=== PATIENT | male | born 1975 | race Caucasian/White ===

== ENCOUNTER 2016-05-05 20:21 | Inpatient (IN) | payer OTHER ==
--- NOTE | ~2016-05-05 | HP ---
Unit #: [id number] #: [id number] Patient: KIMBERLY BEST [id number] [place] [address] [id number] MR#: [id number] NAME: KIMBERLY BEST ROOM: P174 Age: 40 Sex: M Admission Date: 05/05/2016 : 1975 Attending Physician: Francisco Enrique M.D. Admitting Physician: Francisco Enrique M.D. Primary Care Physician: Edwin Barrios M.D. HISTORY AND PHYSICAL HISTORY OF PRESENT ILLNESS Kimberly is a 40 year old admitted to [facility] because of his continued abuse of alcohol. He has had numerous admissions to this facility for the same. PAST MEDICAL HISTORY 1. Long history of polysubstance abuse to include alcohol. 2. Obesity. 3. History of DVT. 4. Coronary artery disease. a. History of [place], 2011. b. Angioplasty with stents. 5. History of diverticulitis. 6. Hyperlipidemia. PAST SURGICAL HISTORY 1. Colon resection at 26 years old. 2. Incisional hernia repair x2. 3. Cholecystectomy. 4. Angioplasty with stents. ALLERGIES Penicillin SOCIAL HISTORY Smokes at least one pack per day. Drinks alcohol and has a history of illicit drug use. FAMILY HISTORY Medically noncontributory. REVIEW OF SYSTEMS CONSTITUTIONAL: No fever or chills. HEENT: Denies any sore throat, ear pain or runny nose. CARDIOVASCULAR: Denies chest pain, irregular heart rhythm or palpitations. CHEST: Denies shortness of breath or cough. No hemoptysis. GASTROINTESTINAL: Denies nausea, vomiting, diarrhea or chronic constipation. ENDOCRINE: Denies history of increased thirst or urination. No recent significant weight loss or gain. GENITOURINARY: Denies dysuria, frequency, or hematuria. SKIN: Denies any rashes. Unit #: [id number] #: [id number] Patient: KIMBERLY BEST HEMATOLOGIC: Denies history of increased bleeding or bruising. MUSCULOSKELETAL: Denies any hot, swollen joints. No generalized muscle pain. NEUROLOGIC: Denies problems with vision or speech. No frequent, severe headaches. No numbness, tingling or weakness in any extremities. Denies loss of bladder or bowel control. CURRENT MEDICATIONS 1. Detox protocol 2. Effexor XR 75 mg daily 3. Zyprexa 10 mg q.h.s. 4. Nicotine patch 14 mg daily 5. Coreg 12.5 mg b.i.d. 6. BuSpar 10 mg t.i.d. 7. Xarelto 20 mg q.a.m. PHYSICAL EXAMINATION GENERAL: Alert, obese, in no apparent distress. VITAL SIGNS: Blood pressure 117/78, heart rate 76, respirations 16, temperature 98.6. WEIGHT: 240 pounds. HEIGHT: 5'11". SKIN: Warm and dry without rash or lesion. HEENT: Normocephalic. TMs not viewed. Oral and nasal passages clear. Conjunctivae clear. Pupils equal, round and reactive to light and accommodation. Extraocular movements intact. NECK: Supple without lymphadenopathy or thyromegaly. HEART: Regular rate and rhythm without murmur. LUNGS: Clear. ABDOMEN: Soft, nontender. : Not done. EXTREMITIES: No evidence of cyanosis, clubbing or edema. Moves all extremities without focal deficit. NEUROLOGICAL: Grossly within normal limits. Cranial Nerves: II: Visual brian are intact. III, IV AND : Extraocular movements are intact. Pupils are equal, round and reactive to light. V: Facial sensation is grossly normal. VII: Facial movements and expression are normal. VIII: Auditory acuity grossly intact. IX, X: Uvula is midline. Phonation is normal. XI: Patient shrugs shoulders and turns head normally. XII: Tongue protrudes in the midline. Sensory and Motor Function: Sensory and motor sensation is grossly normal. Motor: moves all extremities well. Coordination: Gait is normal. Deep Tendon Reflexes: Intact. IMPRESSION Psychiatric admission RECOMMENDATIONS PSYCHIATRIC: Per psychiatrist. MEDICAL: I see no contraindications to participating in facility's activities. MEDICAL PROGNOSIS Good. MEDICAL CONDITION Unit #: [id number] #: [id number] Patient: KIMBERLY BEST. Dictated by... Jyothi Meadows P.A.-C. for Shawna Celaya/marisabel TD: 05/06/2016 22:35 JOB #: [id number] HISTORY AND PHYSICAL Page 1 of 1 X Jyothi Meadows HISTORY AND PHYSICAL
--- NOTE | ~2016-05-05 | PN ---
Unit #: [id number] #: [id number] Patient: KIMBERLY BEST [id number] [facility] [address] [place] [address] [id number] I MR#: [id number] NAME: KIMBERLY BEST ROOM: 74 Age: 40 Sex: M Admission Date: 05/05/2016 : 1975 Attending Physician: Francisco Enrique M.D. Admitting Physician: Francisco Enrique M.D. Primary Care Physician: Shawna Darling PROGRESS NOTES DATE 05/08/2016. DISCUSSION Kimberly has mildly improved detox symptoms today. His mood appears less depressed, but still anxious with a congruent affect. He is alert and fully oriented with no psychosis. He has some ongoing suicidal ideation. ASSESSMENT Alcohol dependence, major depression. PLAN Continue detox protocol and current medications. Dictated by... Francisco Enrique M.D. [facility]/gz TD: 05/08/2016 13:58 JOB #: [id number] KIMMIE PROGRESS NOTES Page 1 of 1 X Francisco Enrique MD PROGRESS NOTE
--- NOTE | ~2016-05-05 | PA ---
Unit #: [id number] #: [id number] Patient: KIMBERLY MENDOZA [id number] [place] [address] [id number] I MR#: [id number] NAME: KIMBERLY MENDOZA ROOM: P174 Age: 40 Sex: M Admission Date: 05/05/2016 : 1975 Date of Assessment: 05/06/2016 Attending Physician: Francisco Enrique M.D. Admitting Physician: Francisco Enrique M.D. Primary Care Physician: Edwin Barrios M.D. PSYCHIATRIC ASSESSMENT DATE OF SERVICE 05/06/2016. INFORMANTS The patient, reliable. junior MOISE. CHIEF COMPLAINT Suicidal ideation. HISTORY OF PRESENT ILLNESS Kimberly Mendoza is a 40-year-old man with a history of mood disorder and polysubstance dependence. He presented reporting that he has been compliant with medications, but despite this, has relapsed on alcohol and heroin and is having increasing job stress as well. He felt hopeless, helpless and suicidal and could not contract for safety. PAST PSYCHIATRIC HISTORY Multiple admissions to this facility and multiple attempts at outpatient care. He has been taking Remeron, trazodone, and Zyprexa with erratic compliance. FAMILY PSYCHIATRIC HISTORY There is a family history of chemical dependence and depression. SOCIAL HISTORY The patient is single and is currently not having a relationship. He is staying in an apartment and working at [employer]. PAST MEDICAL HISTORY Hypertension and a cocaine-induced myocardial infarction. MEDICATIONS Coreg. ALLERGIES Benadryl. SUBSTANCE ABUSE HISTORY The patient has an extensive history of chemical dependence with alcohol and heroin predominant. MENTAL STATUS EXAMINATION Kimberly presented as a mildly disheveled man who appeared his stated age. Unit #: [id number] #: [id number] Patient: KIMBERLY MENDOZA He was cooperative with the examination. His speech was spontaneous and easily understood. Musculoskeletal examination was calm. He stood 5 feet 11 inches, weighing 240 pounds. Vital signs; temperature 98.6, pulse 68, respirations 20, and blood pressure 90/60. His speech was spontaneous and easily understood. His mood was depressed with a congruent affect. He was alert and fully oriented. His memory and concentration were intact. Thought processes were logical with no active psychosis. He reported suicidal ideation with a plan to overdose and could not contract for safety. Insight and judgment, fair. Fund of knowledge and abstraction, fair. ASSETS AND LIABILITIES The patient is familiar with local treatment, is employed and has medical insurance. Liabilities include difficulty maintaining sobriety, erratic psychosocial support. ADMITTING DIAGNOSES AXIS I: Alcohol dependence with withdrawal, uncomplicated. Opioid dependence. Major depressive disorder. AXIS II: No diagnosis. AXIS III: Coronary artery disease, hypertension. AXIS IV: AXIS V: PSYCHIATRIC PLAN The patient was admitted and placed on suicide precautions. His home medications will be restarted. Remeron will be discontinued due to lack of effect and we will substitute Effexor XR 75 mg daily and increase Zyprexa 5 mg to 10 mg at bedtime for improved sleep and mood stability. He will enroll in dual-diagnosis groups and activities, and physical examination and laboratory studies will be ordered and reviewed. TREATMENT GOALS Resolution of SI, improvement in insight, improvement in coping skills, and establishment of sobriety. DISCHARGE PLANNING Follow up with [facility]. ESTIMATED LENGTH OF STAY 5 days. Dictated by... Francisco Enrique M.D. [facility]/abel TD: 05/11/2016 05:02 JOB #: [id number] Unit #: [id number] #: [id number] Patient: KIMBERLY MENDOZA PSYCHIATRIC ASSESSMENT Page 1 of 1 X Francisco Enrique MD X PSYCHIATRIC ASSESSMENT
--- NOTE | ~2016-05-05 | PN ---
Unit #: [id number] #: [id number] Patient: KIMBERLY BEST [id number] [facility] [address] [place] [address] [id number] MR#: [id number] NAME: KIMBERLY BEST ROOM: 74 Age: 40 Sex: M Admission Date: 05/05/2016 : 1975 Attending Physician: Francisco Enrique M.D. Admitting Physician: Francisco Enrique M.D. Primary Care Physician: Shawna Darling PROGRESS NOTES DATE OF SERVICE: 05/07/2016 DISCUSSION Kimberly continues to have active withdrawal symptoms today. This includes tremor, shaking, sweating, and nausea. He is alert and fully oriented. His memory and concentration are intact. His thought processes are logical with no active psychosis. He is equivocal about suicidal ideation today. ASSESSMENT Major depression, alcohol dependence. PLAN Continue current treatment plan. Dictated by... Shawna AdamH/abel TD: 05/14/2016 02:32 JOB #: [id number] [facility] PROGRESS NOTES Page 1 of 1 X Francisco Enrique MD PROGRESS NOTE
--- NOTE | ~2016-05-05 | DS ---
Unit #: [id number] #: [id number] Patient: KIMBERLY BEST [id number] [facility] [address] [place] [address] [id number] I MR#: [id number] NAME: KIMBERLY BEST ROOM: P174 Age: 40 Sex: M Admission Date: 05/05/2016 : 1975 Discharge Date: 05/10/2016 Attending Physician: Francisco Enrique M.D. Primary Care Physician: Edwin Barrios M.D. DISCHARGE SUMMARY REASON FOR ADMISSION Kimberly is a 40-year-old man with multiple admissions to this facility, who recently relapsed onto the use of alcohol with occasional use of heroin. He had increasing hopeless and helpless and was able to contract for safety. He was admitted for stabilization. DIAGNOSTIC STUDIES LABORATORY RESULTS: Please see hospital chart. HOSPITAL COURSE Kimberly was admitted and placed on suicide precautions. The alcohol detox protocol was initiated. His Remeron, which he had been on for a long time, was changed to Effexor XR 75 mg daily with intention to titrate this upwards in the outpatient setting. We also increased Zyprexa from 5 to 10 to improve sleep and mood stability. He had [id number] detox symptoms by the time of discharge and his mood had improved. He was able to contract for safety in good condition. DISCHARGE DIAGNOSES AXIS I: Alcohol dependence with withdrawal, uncomplicated; opioid dependence; major depression. AXIS II: No diagnosis. AXIS III: Hypertension, coronary artery disease, congestive heart failure. AXIS IV: AXIS V: DISCHARGE INSTRUCTIONS [facility] and primary care physician. DISCHARGE MEDICATIONS Protonix 40 mg daily for GERD, Xarelto 20 mg daily for anticoagulation, trazodone 200 mg at bedtime for sleep, Coreg 12.5 mg b.i.d. for CHF, Neurontin 800 mg t.i.d. for neuropathy, buspirone 10 mg t.i.d. for anxiety, Effexor XR 150 mg daily for depression, Zyprexa 10 mg at bedtime for mood stability. CONDITION AT DISCHARGE Improved. PROGNOSIS Good. Unit #: [id number] #: [id number] Patient: KIMBERLY BEST DIET AND ACTIVITY Per primary care physician. Dictated by... Francisco Enrique M.D. [facility]/abel TD: 05/11/2016 05:50 JOB #: [id number] DISCHARGE SUMMARY Page 1 of 1 X Francisco Enrique MD DISCHARGE SUMMARY
[2016-05-06 09:41] LABS: BASOPHIL# 0.1 X10e3 (0-0.3); BASOPHIL% 1.4 % (0-2.5); EOSINOPHIL# 0.2 X10e3 (0-0.7); EOSINOPHIL% 3.4 % (0.0-7.0); HEMATOCRIT 41.2 % (38.0-50.0); HEMOGLOBIN 14.4 gm/dL (13.0-16.0); LYMPHOCYTE# 2.3 X10e3 (1.0-3.5); MEAN CELL VOLUME 90.5 FL (83-96); MEAN CORPUSCULAR HEMOGLOBIN 31.8 PG (28-34); MEAN CORPUSCULAR HGB CONC 35.1 g/dL (30-36); MEAN PLATELET VOLUME 7.7 FL (6.5-11.5); MONOCYTE# 0.5 X10e3 (0-1.0); MONOCYTE% 10.5 % (3.0-12.0); NEUTROPHIL# 1.6 X10e3 (1.5-7.1); NEUTROPHIL% 34.7 % (40-75); PLATELET COUNT 273 X10e3 (140-420); RED BLOOD COUNT 4.55 X10e (3.90-5.60); RED CELL DISTRIBUTION WIDTH 13.3 % (11.0-15.5); WHITE BLOOD COUNT 4.5 X10e3 (4.0-10.5)
[2016-05-06 09:46] LABS: DIFF IND NO
[2016-05-06 09:56] LABS: THYROID STIMULATING HORMONE 1.46 uIU/ml (0.34-5.60)
[2016-05-06 09:58] LABS: ALBUMIN SERUM 3.9 g/dL (3.5-5.0); ALKALINE PHOSPHATASE 97 U/L (32-92); ALT (SGPT) 35 U/L (10-40); AST (SGOT) 27 U/L (10-42); BILIRUBIN,TOTAL 0.6 mg/dL (0.2-2.0); BLOOD UREA NITROGEN 14 mg/dL (9-23); BUN/CREATININE RATIO 15.55; CALCIUM SERUM 9.2 mg/dL (8.4-10.2); CARBON DIOXIDE 26 mmol/L (22-31); CHLORIDE 103 mmol/L (100-111); CREATININE SERUM 0.9 mg/dL (0.6-1.4); GLOM FILT RATE Estimated ABOVE60 mL/min (>60); GLUCOSE FASTING 78 mg/dL (70-110); POTASSIUM 4.4 mmol/L (3.5-5.1); SODIUM 137 mmol/L (135-145)
[2016-05-06 10:05] LABS: FREE THYROXIN (T4) 0.72 ng/dL (0.58-1.64)
[2016-05-06 12:35] LABS: URINE BILIRUBIN NEG (NEG); URINE BLOOD NEG (NEG); URINE COLOR YELLOW; URINE GLUCOSE NEG (NEG); URINE KETONE NEG (NEG); URINE LEUKOCYTE ESTERASE NEG (NEG); URINE NITRATE NEG (NEG); URINE PROTEIN NEG (NEG); URINE SPECIFIC GRAVITY 1.016 (1.003-1.035)
[2016-05-06 12:57] LABS: URINE APPEARANCE CLEAR
[2016-05-06 12:58] LABS: AMPHETAMINE NEG (NEG); BARBITURATES NEG (NEG); BENZODIAZEPINES NEG (NEG); COCAINE NEG (NEG); MARIJUANA NEG (NEG); OPIATES NEG (NEG); TRICYCLIC ANTIDEPRESSANTS NEG (NEG); U METHADONE NEG (NEG)
== END 2016-05-10 12:20 | disposition home or self-care (01) | DRG 897 ==
LOC: P1E 20:21
PROVIDERS: Psychiatry & Neurology Psychiatry
PROC: HZ2ZZZZ Detoxification Services for Substance Abuse Treatment (ICD-10-PCS; principal; 2016-05-05)
DX: F10.239 Alcohol dependence with withdrawal, unspecified (principal); F11.20 Opioid dependence, uncomplicated; R45.851 Suicidal ideations; I50.9 Heart failure, unspecified; F32.9 Major depressive disorder, single episode, unspecified; I25.10 Atherosclerotic heart disease of native coronary artery without angina pectoris; I10 Essential (primary) hypertension; I25.2 Old myocardial infarction; Z95.5 Presence of coronary angioplasty implant and graft; E78.5 Hyperlipidemia, unspecified; Z88.0 Allergy status to penicillin; F17.200 Nicotine dependence, unspecified, uncomplicated
CPT/HCPCS: 80053; 80307; 81003; 84439; 84443; 85025; 86592

== ENCOUNTER 2016-07-16 19:00 | Inpatient (IN) | payer OTHER ==
--- NOTE | ~2016-07-16 | HP ---
Unit #: [id number] #: [id number] Patient: KIMBERLY BSET [id number] [place] [address] [id number] I MR#: [id number] NAME: KIMBERLY BEST ROOM: P180 Age: 40 Sex: M Admission Date: 07/16/2016 : 1975 Attending Physician: Francisco Enrique M.D. Admitting Physician: Francisco Enrique M.D. Primary Care Physician: Edwin Barrios M.D. HISTORY AND PHYSICAL HISTORY OF PRESENT ILLNESS Kimberly is a 40 year old admitted to [facility] because of his continued abuse of alcohol. He has had numerous admissions to this facility. PAST MEDICAL HISTORY 1. Long history of polysubstance abuse to include alcohol. 2. Obesity. 3. History of DVT. 4. Coronary artery disease. a. History of [place], 2011. b. Angioplasty with stents. 5. History of diverticulitis. 6. Hyperlipidemia. PAST SURGICAL HISTORY 1. Colon resection at 26 years old. 2. Incisional hernia repair x2. 3. Cholecystectomy. 4. Angioplasty with stents. ALLERGIES Penicillin. SOCIAL HISTORY Smokes 1 pack per day. Drinks alcohol, has a history of illicit drug use. FAMILY HISTORY Medically noncontributory. REVIEW OF SYSTEMS CONSTITUTIONAL: No fever or chills. HEENT: Denies any sore throat, ear pain or runny nose. CARDIOVASCULAR: Denies chest pain, irregular heart rhythm or palpitations. CHEST: Denies shortness of breath or cough. No hemoptysis. GASTROINTESTINAL: Denies nausea, vomiting, diarrhea or chronic constipation. ENDOCRINE: Denies history of increased thirst or urination. No recent significant weight loss or gain. GENITOURINARY: Denies dysuria, frequency, or hematuria. SKIN: Denies any rashes. HEMATOLOGIC: Denies history of increased bleeding or bruising. MUSCULOSKELETAL: Denies any hot, swollen joints. No generalized muscle pain. Unit #: [id number] #: [id number] Patient: KIMBERLY BEST NEUROLOGIC: Denies problems with vision or speech. No frequent, severe headaches. No numbness, tingling or weakness in any extremities. Denies loss of bladder or bowel control. CURRENT MEDICATIONS 1. Detox protocol. 2. Zyprexa 10 mg q.h.s. 3. Coreg 12.5 mg b.i.d. 4. Xarelto 20 mg daily. PHYSICAL EXAMINATION GENERAL: Alert, morbidly obese, in no apparent distress. VITAL SIGNS: Blood pressure 118/80, heart rate 74, respirations 16, temperature 98.6. WEIGHT: 250. HEIGHT: 5 feet 11 inches. SKIN: Warm and dry without rash or lesion. HEENT: Normocephalic. TMs not viewed. Oral and nasal passages clear. Conjunctivae clear. PERRLA. EOMs intact. NECK: Supple without lymphadenopathy or thyromegaly. HEART: Regular rate and rhythm without murmur. LUNGS: Clear. ABDOMEN: Soft, nontender. : Not done. EXTREMITIES: No evidence of cyanosis, clubbing or edema. Moves all without focal deficit. NEUROLOGICAL: Grossly within normal limits. Cranial Nerves: II: Visual brian are intact. III, IV AND : Extraocular movements are intact. Pupils are equal, round and reactive to light. V: Facial sensation is grossly normal. VII: Facial movements and expression are normal. VIII: Auditory acuity grossly intact. IX, X: Uvula is midline. Phonation is normal. XI: Patient shrugs shoulders and turns head normally. XII: Tongue protrudes in the midline. Sensory and Motor Function: Sensory and motor sensation is grossly normal. Motor: moves all extremities well. Coordination: Gait is normal. Deep Tendon Reflexes: Intact. IMPRESSION Psychiatric admission. RECOMMENDATIONS PSYCHIATRIC: Per psychiatrist. MEDICAL: See no contraindication to participate in facility's activities. MEDICAL PROGNOSIS Good. MEDICAL CONDITION Stable. Dictated by... Jyothi Meadows P.A.-C. for Apple Riojas M.D. Unit #: [id number] #: [id number] Patient: KIMBERLY BEST MERARI/chaim TD: 07/17/2016 19:43 JOB #: [id number] HISTORY AND PHYSICAL Page 1 of 1 X Jyothi Meadows HISTORY AND PHYSICAL
--- NOTE | ~2016-07-16 | PN ---
Unit #: [id number] #: [id number] Patient: KIMBERLY BEST [id number] [facility] [address] [place] [address] [id number] I MR#: [id number] NAME: KIMBERLY BEST ROOM: P180 Age: 40 Sex: M Admission Date: 07/16/2016 : 1975 Attending Physician: Francisco Enrique M.D. Admitting Physician: Francisco Enrique M.D. Primary Care Physician: Edwin Barrios M.D. [facility] PROGRESS NOTES DATE 07/19/2016 DISCUSSION Upon today's assessment, the patient was found sitting in the day room interacting well with peers. At this time, he has complaints of mild signs and symptoms of withdrawal as evidenced by slight tremor, headaches, he reports some back pain and restless legs. He does report slight elevated levels of anxiety and agitation. He reports that in group today he became a bit agitated and relates this to being triggered in regards to his current use of alcohol and how his family feels about his alcohol use. He reports at this time that he feels that the medications that he and Dr. Enrique have been working on are very effective and that his (1) combo. Mental status at this time reveals a casually dressed male with fair personal hygiene. He is alert and oriented to person, place, and general circumstances. His mood appears somewhat anxious with a congruent affect. Speech is relevant, coherent, with a normal rate and tone. Thought processes are goal-directed. He currently denies suicidal or homicidal ideation. He denies auditory visual hallucinations and no overt symptoms of psychosis was noted. Memory and intellectual functioning are grossly intact. Judgment and insight are improving but limited. Sleep and appetite, he reports sleep is adequate and appetite is fair at this time. We will continue to monitor this patient on the (2) based protocol with vital signs assessment q.4 hours and will provide comfort medications as needed. We will also continue to encourage the patient to participate in groups and programming. Dictated by... JADA Vivas TD: 07/21/2016 09:41 JOB #: [id number] Unit #: [id number] #: [id number] Patient: KIMBERLY BESTCLAUDE PROGRESS NOTES Page 1 of 1 X YOAV CHRIS Michael R MD PROGRESS NOTE
--- NOTE | ~2016-07-16 | DS ---
Unit #: [id number] #: [id number] Patient: KIMBERLY BEST [id number] [facility] [address] [place] [address] [id number] I MR#: [id number] NAME: KIMBERLY BEST ROOM: P180 Age: 40 Sex: M Admission Date: 07/16/2016 : 1975 Discharge Date: 07/19/2016 Attending Physician: Francisco Enrique M.D. Primary Care Physician: Edwin Barrios M.D. DISCHARGE SUMMARY This patient was seen and evaluated on 07/19/2016. REASON FOR ADMISSION The patient is a 40-year-old male, admitted to [facility] because of his continued abuse of alcohol. He has had numerous admissions to this facility. Upon presenting to this facility, he reported suicidal ideation, but reports this has resolved fully at this time and that he was intoxicated. He is now detoxed and no longer suicidal. DIAGNOSTIC STUDIES See hospital medical records. HOSPITAL COURSE The patient was admitted and placed on alcohol detox protocol and suicidal precautions. His home medications were continued. Please see hospital medical records. He was admitted on 07/16/2016 and during this assessment on 07/18/2016 by this provider, he was reporting mild signs and symptoms of detox at that time, which he now reports are no longer there. He reports that he is feeling good, denies any signs or symptoms of withdrawal at this time and would like to be discharged home. DISCHARGE DIAGNOSES AXIS I: Major depressive disorder, single episode, unspecified F32.9 and alcohol dependence, F10.20. AXIS II: Deferred. AXIS III: Obesity, history of deep venous thrombosis, coronary artery disease with a history of a myocardial infarction in 2011, angioplasty with stents, history of diverticulitis, and hyperlipidemia. AXIS IV: AXIS V: DISCHARGE INSTRUCTIONS This patient reports that he will continue with his psychiatric medications to the care of Dr. Eli Nicolas. She also gave him a list of therapists at [facility] which he has their numbers and he reports that he will call and continue with therapy once discharged from this facility. DISCHARGE MEDICATIONS See hospital medical records. CONDITION ON DISCHARGE Unit #: [id number] #: [id number] Patient: KIMBERLY BEST Improved. PROGNOSIS Fair. DIET AND ACTIVITIES Per primary care provider. Dictated by... Cinthia Shah/modl TD: 07/20/2016 01:44 JOB #: [id number] DISCHARGE SUMMARY Page 1 of 1 X Suzanne Moore DISCHARGE SUMMARY
--- NOTE | ~2016-07-16 | PA ---
Unit #: [id number] #: [id number] Patient: KIMBERLY BEST [id number] [facility] [address] [place] [address] [id number] I MR#: [id number] NAME: KIMBERLY BEST ROOM: P180 Age: 40 Sex: M Admission Date: 07/16/2016 : 1975 Date of Assessment: Attending Physician: Francisco Enrique M.D. Admitting Physician: Francisco Enrique M.D. Primary Care Physician: Edwin Barrios M.D. PSYCHIATRIC ASSESSMENT INFORMANTS The patient, partially reliable; [facility], reliable. CHIEF COMPLAINT Suicidal ideation and intoxication. HISTORY OF PRESENT ILLNESS Kimberly is a 40-year-old man, well known to me from multiple admissions to this facility, who presented reporting increasing hopelessness, helplessness, and suicidal ideation after a recent relapse. This has caused him to been unable to handle stress on his job or to obtain adequate employment. He feels frustrated by his lack of progress and could not contract for safety. PAST PSYCHIATRIC HISTORY Multiple admissions to this facility and multiple attempts at outpatient treatment. FAMILY PSYCHIATRIC HISTORY There is a family history of chemical dependence and depression. SOCIAL HISTORY The patient is single and is currently erratically employed. He does have his own apartment, but has erratic transportation. He has minimal family support. PAST MEDICAL HISTORY Hypertension, cocaine-induced myocardial infarction. MEDICATIONS Coreg. ALLERGIES Benadryl. SUBSTANCE ABUSE HISTORY As noted, the patient has an extensive history of chemical dependence with use of alcohol and heroin predominating. MENTAL STATUS EXAMINATION The patient presented as a disheveled man, who appeared older than his stated age. He was cooperative with the examination. His speech was spontaneous and easily understood. Musculoskeletal examination was calm. Unit #: [id number] #: [id number] Patient: KIMBERLY BEST His mood was depressed with a congruent affect. He was alert and fully oriented. His memory and concentration were fair to good. His thought processes were goal directed with no active psychosis. He did report suicidal ideation with a plan to overdose, but contracted for safety in the hospital. Insight and judgment were fair. Fund of knowledge and abstraction were fair. ASSETS AND LIABILITIES The patient knows Mental Health resources and presents voluntarily for treatment. LIABILITIES Include difficulty maintaining sobriety and frequent relapses. ADMITTING DIAGNOSES AXIS I: Major depression, alcohol dependence. AXIS II: No diagnosis. AXIS III: Substance abuse, coronary artery disease, and gastroesophageal reflux disease. AXIS IV: AXIS V: PSYCHIATRIC PLAN The patient was admitted and placed on suicide precautions and alcohol detox protocol. Effexor XR, Zyprexa for mood stability; and trazodone at bedtime for insomnia will be restarted together with Coreg, Neurontin, and Xarelto with Protonix for his medical conditions. He will enroll in psychotherapy groups and activities, and physical examination and laboratory studies will be ordered and reviewed. TREATMENT GOALS Resolution of SI, establishment of sobriety, improvement in insight, and improvement in coping skills. DISCHARGE PLANNING Follow up with primary care physician. ESTIMATED LENGTH OF STAY Five days. Dictated by... Francisco Enrique M.D. JER[facility]/abel TD: 07/21/2016 15:04 JOB #: [id number] Unit #: [id number] #: [id number] Patient: KIMBERLY BEST PSYCHIATRIC ASSESSMENT Page 1 of 1 X Francisco Enrique MD X PSYCHIATRIC ASSESSMENT
[2016-07-17 09:38] LABS: BASOPHIL# 0.1 X10e3 (0-0.3); BASOPHIL% 1.2 % (0-2.5); EOSINOPHIL# 0.2 X10e3 (0-0.7); HEMATOCRIT 44.6 % (38.0-50.0); HEMOGLOBIN 15.1 gm/dL (13.0-16.0); LYMPHOCYTE# 3.1 X10e3 (1.0-3.5); LYMPHOCYTE% 42.2 % (17.0-45.0); MEAN CELL VOLUME 91.6 FL (83-96); MEAN CORPUSCULAR HGB CONC 33.8 g/dL (30-36); MEAN PLATELET VOLUME 7.8 FL (6.5-11.5); MONOCYTE# 0.8 X10e3 (0-1.0); MONOCYTE% 10.5 % (3.0-12.0); NEUTROPHIL# 3.3 X10e3 (1.5-7.1); NEUTROPHIL% 44.1 % (40-75); PLATELET COUNT 268 X10e3 (140-420); RED BLOOD COUNT 4.87 X10e (3.90-5.60); RED CELL DISTRIBUTION WIDTH 13.7 % (11.0-15.5); WHITE BLOOD COUNT 7.4 X10e3 (4.0-10.5)
[2016-07-17 09:54] LABS: DIFF IND NO
[2016-07-17 10:15] LABS: ALBUMIN SERUM 4.1 g/dL (3.5-5.0); BILIRUBIN,TOTAL 0.6 mg/dL (0.2-2.0); BUN/CREATININE RATIO 23.75; CALCIUM SERUM 9.3 mg/dL (8.4-10.2); CREATININE SERUM 0.8 mg/dL (0.6-1.4); GLOM FILT RATE Estimated 112.6 mL/min (>60); POTASSIUM 4.2 mmol/L (3.5-5.1)
== END 2016-07-19 18:20 | disposition home or self-care (01) | DRG 881 ==
LOC: P1E 21:09
PROVIDERS: Psychiatry & Neurology Psychiatry
PROC: HZ2ZZZZ Detoxification Services for Substance Abuse Treatment (ICD-10-PCS; principal; 2016-07-16)
DX: F32.9 Major depressive disorder, single episode, unspecified (principal); E78.5 Hyperlipidemia, unspecified; F10.20 Alcohol dependence, uncomplicated; I25.10 Atherosclerotic heart disease of native coronary artery without angina pectoris; K21.9 Gastro-esophageal reflux disease without esophagitis; Z86.718 Personal history of other venous thrombosis and embolism; I25.2 Old myocardial infarction; Z90.49 Acquired absence of other specified parts of digestive tract; Z88.0 Allergy status to penicillin; F17.210 Nicotine dependence, cigarettes, uncomplicated
CPT/HCPCS: 80053; 85025; 86592

== ENCOUNTER 2016-09-18 17:22 | Inpatient (IN) | payer OTHER ==
[~2016-09-18] VITALS: Ht 180.3 cm; Wt 108.9 kg
--- NOTE | ~2016-09-18 | PA ---
Unit #: [id number] #: [id number] Patient: KIMBERLY BEST [id number] [facility] [address] [place] [address] [id number] I MR#: [id number] NAME: KIMBERLY BEST ROOM: P181 Age: 41 Sex: M Admission Date: 09/18/2016 : 1975 Date of Assessment: Attending Physician: Francisco Enrique M.D. Admitting Physician: Francisco Enrique M.D. Primary Care Physician: Edwin Barrios M.D. PSYCHIATRIC ASSESSMENT DATE OF SERVICE 09/19/2016. INFORMANTS The patient reliable; OLOP, reliable. CHIEF COMPLAINT "I've been drinking enormously." HISTORY OF PRESENT ILLNESS Kimberly is a 41-year-old man with many admissions to this facility for chemical dependence and depression. He reports he has been sick from detoxing and drinking 2 pints of vodka. He has been shaking and nauseous. He had been erratically compliant with his medications, but denied any current suicidal ideation, intent, or plan. He was admitted for alcohol detox. PAST PSYCHIATRIC HISTORY This is Kimberly's 24th admission to this facility for the above complaints. He has had multiple attempts at outpatient treatment with various levels of success. FAMILY PSYCHIATRIC HISTORY There is a family history of chemical dependence and depression. SOCIAL HISTORY The patient is single and has erratic employment and housing. He has minimal family support. He is single with no children. PAST MEDICAL HISTORY Hypertension and history of cocaine induced myocardial infarction. MEDICATIONS Please see MAR. ALLERGIES Benadryl. SUBSTANCE USE HISTORY As noted, the patient has extensive history of alcohol, opioid, and amphetamine abuse. MENTAL STATUS EXAMINATION Unit #: [id number] #: [id number] Patient: KIMBERLY BEST presented as a mildly disheveled man, appearing older than his stated age. He was cooperative with the examination. Speech was easily understood. Musculoskeletal examination was calm. Mood was depressed with a decreased range of affect. He was alert and fully oriented. His memory and concentration were fair. His thought processes were goal directed with no active psychosis. He denied suicidal ideation, intent, or plan. He denied homicidal ideation. Insight and judgment, fair. Fund of knowledge and abstraction, fair. ASSETS AND LIABILITIES The patient knows local resources and presents voluntarily for treatment. Liabilities include problems maintaining sobriety and erratic employment. ADMITTING DIAGNOSES AXIS I: Alcohol dependence with withdrawal, uncomplicated, F10.230; major depressive disorder. AXIS II: No diagnosis. AXIS III: Coronary artery disease, gastroesophageal reflux disease. AXIS IV: AXIS V: PSYCHIATRIC PLAN The patient was admitted and placed on the alcohol detox protocol. His home medications will be re-confirmed with his pharmacy and restarted. He will enroll in dual diagnosis groups and activities and physical examination and laboratory studies will be ordered and reviewed as indicated. TREATMENT GOALS Establishment of sobriety, improvement in insight, and improvement in coping skills. DISCHARGE PLANNING Follow up with [facility]. ESTIMATED LENGTH OF STAY 5 days. Dictated by... Francisco Enrique M.D. JEREMY/abel TD: 09/19/2016 15:46 JOB #: [id number] Unit #: [id number] #: [id number] Patient: KIMBERLY BEST PSYCHIATRIC ASSESSMENT Page 1 of 1 X Francisco Enrique MD X PSYCHIATRIC ASSESSMENT
--- NOTE | ~2016-09-18 | HP ---
Unit #: [id number] #: [id number] Patient: KIMBERLY BEST [id number] [facility] [address] [place] [address] [id number] I MR#: [id number] NAME: KIMBERLY BEST ROOM: P181 Age: 41 Sex: M Admission Date: 09/18/2016 : 1975 Attending Physician: Francisco Enrique M.D. Admitting Physician: Francisco Enrique M.D. Primary Care Physician: Edwin Barrios M.D. HISTORY AND PHYSICAL HISTORY OF PRESENT ILLNESS The patient is a 41-year-old man who has been admitted to [facility] for his continued abuse of alcohol use. He has had numerous admissions to this facility for the same. PAST MEDICAL HISTORY 1. Polysubstance abuse. 2. Alcoholism. 3. Obesity. 4. History of DVT. 5. Coronary artery disease with stents. 6. Diverticulitis. 7. Hyperlipidemia. PAST SURGICAL HISTORY 1. Colon resection. 2. Incisional hernia repair x2. 3. Cholecystectomy. 4. Angioplasty with stents. ALLERGIES Penicillin. HOME MEDICATIONS 1. Coreg 12.5 mg p.o. b.i.d. 2. Gabapentin 300 mg p.o. t.i.d. 3. Zyprexa 10 mg p.o. a night. 4. Trazodone 200 mg p.o. at night. 5. Protonix 40 mg p.o. daily. 6. Xarelto 20 mg p.o. daily. 7. Effexor XR 150 mg p.o. at night. FAMILY HISTORY Medically noncontributory. SOCIAL HISTORY The patient endorses tobacco and alcoholism. He does have a past medical history of illicit drug use. REVIEW OF SYSTEMS CONSTITUTIONAL: Denies fever or chills. HEENT: Denies sore throat, ear pain, or runny nose. CARDIOVASCULAR: Denies chest pain, irregular heart rhythm, or Unit #: [id number] #: [id number] Patient: KIMBERLY BEST palpitations. CHEST: Denies shortness of breath or cough. No hemoptysis. GI: Denies nausea, vomiting, diarrhea, or chronic constipation. ENDOCRINE: Denies increased thirst or urination. Denies any recent weight loss or gain. : Denies dysuria, frequency, or hematuria. SKIN: Denies any rashes. HEMATOLOGIC: Denies increased bleeding or bruising. MUSCULOSKELETAL: Denies any hot, swollen joints. No generalized pain. NEUROLOGIC: Denies problems with speech or vision, numbness, or tingling. Denies loss of bowel or bladder control. PHYSICAL EXAMINATION GENERAL: The patient is awake, alert, in no acute distress. VITAL SIGNS: Temperature 98.4, heart rate 66, respirations 18, and blood pressure 129/83. He is 5 feet 11 and weighs 240 pounds. HEENT: Head is atraumatic, normocephalic. Pupils are equal, round, and reactive to light. Extraocular movements are intact. No drainage from ears or nose. NECK: Supple. Trachea is midline. HEART: Regular rate and rhythm. LUNGS: Clear. ABDOMEN: Soft, nontender, nondistended. : Not done. SKIN: Warm and dry without any unusual rashes or lesions. EXTREMITIES: No clubbing, edema, or cyanosis. NEUROLOGIC: Cranial nerves II through XII intact. No focal deficits. Sensory or motor function: Grossly intact. Moves all extremities well. Coordination: Gait normal. Deep tendon reflexes intact. IMPRESSION Psychiatric admission. RECOMMENDATIONS PSYCHIATRIC: Per psychiatrist. MEDICAL: I see no contraindication to participate in the facility activities. MEDICAL PROGNOSIS Fair. MEDICAL CONDITION Stable. Dictated by... Cinthia Dasilva TD: 09/19/2016 12:57 JOB #: [id number] Unit #: [id number] #: [id number] Patient: KIMBERLY BEST HISTORY AND PHYSICAL Page 1 of 1 X Akiko Fortune APRN X HISTORY AND PHYSICAL
--- NOTE | ~2016-09-18 | DS ---
Unit #: [id number] #: [id number] Patient: KIMBERLY BEST [id number] [place] [address] [id number] I MR#: [id number] NAME: KIMBERLY BEST ROOM: P181 Age: 41 Sex: M Admission Date: 09/18/2016 : 1975 Discharge Date: 09/22/2016 Attending Physician: Francisco Enrique M.D. Primary Care Physician: Edwin Barrios M.D. DISCHARGE SUMMARY REASON FOR ADMISSION Kimberly is a 42-year-old man with multiple admissions to this facility for chemical dependence and depression. He reported that he was "drinking too much" and it has cost him his most recent employment. This has caused another episode of temporary homelessness. He was unable to contract for safety and was admitted for detox. DIAGNOSTIC STUDIES LABORATORY RESULTS: Please see hospital chart. HOSPITAL COURSE Kimberly was admitted and placed on the alcohol detox protocol. His home medications were restarted unchanged, and he stated that he had been compliant with them prior to admission. He had [id number] detox symptomatology, which gradually relieved itself during the hospitalization. He obtained placement at a [facility] facility and was able to contract for safety on the date of discharge. DISCHARGE DIAGNOSES AXIS I: Alcohol dependence with withdrawal, uncomplicated and major depression. AXIS II: No diagnosis. AXIS III: Coronary artery disease and asthma. AXIS IV: AXIS V: DISCHARGE INSTRUCTIONS Follow up with [facility] and primary care physician. DISCHARGE MEDICATIONS Please see MAR. CONDITION AT DISCHARGE Improved. PROGNOSIS Fair to good. DIET AND ACTIVITY Ad gurmeet. Unit #: [id number] #: [id number] Patient: KIMBERLY BEST Dictated by... Francisco Enrique M.D. /abel TD: 09/23/2016 18:07 JOB #: [id number] DISCHARGE SUMMARY Page 1 of 1 X Francisco Enrique MD X DISCHARGE SUMMARY
--- NOTE | ~2016-09-18 | PN ---
Unit #: [id number] #: [id number] Patient: KIMBERLY BEST [id number] [facility] [address] [place] [address] [id number] I MR#: [id number] NAME: KIMBERLY BEST ROOM: 81 Age: 41 Sex: M Admission Date: 09/18/2016 : 1975 Attending Physician: Francisco Enrique M.D. Admitting Physician: Francisco Enrique M.D. Primary Care Physician: Shawna Darling PROGRESS NOTES DATE 09/21/2016 DISCUSSION Kimberly is seen and is having active withdrawal symptoms today. His mood is irritable with decreased range of affect. He is alert and fully oriented with no psychosis and is equivocal about suicidal ideation. He is somewhat hopeless about the possibility of long-term care but plans to seek this nonetheless. ASSESSMENT Alcohol dependence. PLAN Continue current treatment plan. Dictated by... Shawna AdamH/socrates TD: 09/23/2016 10:43 JOB #: [id number] KIMMIE PROGRESS NOTES Page 1 of 1 X Francisco Enrique MD PROGRESS NOTE
== END 2016-09-22 15:15 | DRG 897 ==
LOC: P1E 19:21
PROC: HZ2ZZZZ Detoxification Services for Substance Abuse Treatment (ICD-10-PCS; principal; 2016-09-18)
DX: F10.230 Alcohol dependence with withdrawal, uncomplicated (principal); F32.9 Major depressive disorder, single episode, unspecified; I25.10 Atherosclerotic heart disease of native coronary artery without angina pectoris; K21.9 Gastro-esophageal reflux disease without esophagitis; E66.9 Obesity, unspecified; E78.5 Hyperlipidemia, unspecified; Z90.49 Acquired absence of other specified parts of digestive tract; Z95.5 Presence of coronary angioplasty implant and graft; Z88.0 Allergy status to penicillin; Z68.33 Body mass index [BMI] 33.0-33.9, adult